=== PATIENT | female | born 1975 | race Caucasian/White ===

== ENCOUNTER 2018-02-17 14:02 | Emergency (ER) | payer OTHER ==
[2018-02-17 14:02] VITALS: BMI 29.2
[2018-02-17 14:09] VITALS: TEMP 98
[2018-02-17] MEDS ORDERED: Sodium Chloride 0.9% 1,000 ML IV ONE (14:40)
--- NOTE | 2018-02-17 14:42 | C.PDOC ---
History Of Present Illness 42 year old female presents to the ED with cc of dizziness today at work. Denies any falls, trauma or LOC. Patient reports she still feels dizzy, weak and feels like she is about to faint. Also complains of upper abdominal pain for 3 weeks. Patient states she was diagnosed with a bacteria in her stomach 9 months ago. [facility]. Denies any fever, chills, hematochezia, hematemesis, nausea, vomiting, or diarrhea. . Time Seen by Provider: 02/17/18 14:18 Chief Complaint (Nursing): Dizziness/Lightheaded History Per: Patient History/Exam Limitations: no limitations Onset/Duration Of Symptoms: Days Current Symptoms Are (Timing): Still Present Fall Associated With With Symptoms: No Past Medical History Reviewed: Historical Data, Nursing Documentation, Vital Signs Vital Signs: Last Vital Signs Temp 98.0 F 02/17/18 14:05 Pulse 104 H 02/17/18 14:05 Resp 18 02/17/18 14:05 BP 130/94 H 02/17/18 14:05 Pulse Ox 98 02/17/18 14:05 - Medical History PMH: Asthma, Gastritis, HTN Surgical History: Family History: States: No Known Family Hx - Social History Hx Tobacco Use: No Hx Alcohol Use: No Hx Substance Use: No - Immunization History Hx Tetanus Toxoid Vaccination: No Hx Influenza Vaccination: No Hx Pneumococcal Vaccination: No Review Of Systems Except As Marked, All Systems Reviewed And Found Negative. Constitutional: Negative for: Fever, Chills Gastrointestinal: Positive for: Abdominal Pain. Negative for: Nausea, Vomiting, Diarrhea, Hematochezia, Hematemesis Neurological: Positive for: Dizziness Physical Exam - Physical Exam Additional Physical Exam Comments: Gen: VS reviewed, alert, well developed, well nourished, nontoxic, mild distress Eye: EOMI, PERRL Neck: no JVD, supple, no adenopathy CV: Tachycardic, regular rhythm, no rubs,no murmur, S1, S2 Pulm: no distress, clear to auscultation, no wheeze, no rhonchi, breath sounds equal, no rales Abd: soft, mild epigastric tenderness, no guarding, no rebound, no rigidity Ext: no edema Skin: good color, no rash, no cyanosis Psych: responds appropriately to questions, normal affect Neuro: oriented x3, CN2-12 intact grossly, motor intact, sensation intact ED Course And Treatment - Laboratory Results Result Diagrams: 02/17/18 14:59 02/17/18 14:59 O2 Sat by Pulse Oximetry: 98 (RA) Pulse Ox Interpretation: Normal - CT Scan/US US gallbladder Other Rad Studies (CT/US): Read By Radiologist, Radiology Report Reviewed CT/US Interpretation: IMPRESSION: liver may be seen in setting of hepatic parenchymal disease or fatty infiltration. Medical Decision Making Medical Decision Making: patient was seen for near syncope and chronic upper abdominal pain. workup in the ED unremarkable, labs ok, patient referred back to see GI. patient states she was off omeprazole for 3 weeks for GI testing but is unsure if she is supposed to go back on it. Disposition - Disposition Disposition: HOME/ ROUTINE Disposition Time: 19:02 Condition: STABLE Additional Instructions: Call your welt butter hand to see if you should restart taking the omeprazole. Follow up with your primary care doctor further evaluation of the dizziness. MARÍA PARMAR, thank you for letting us take care of you today. Your provider was Dr. Manuel Adame and you were treated for abdominal pain. The emergency medical care you received today was directed at your acute symptoms. If you were prescribed any medication, please fill it and take as directed. It may take several days for your symptoms to resolve. Return to the Emergency Department if your symptoms worsen, do not improve, or if you have any other problems. Please contact your doctor or call one of the physicians/clinics you have been referred to that are listed on the Patient Visit Information form that is included in your discharge packet. Bring any paperwork you were given at discharge with you along with any medications you are taking to your follow up visit. Our treatment cannot replace ongoing medical care by a primary care provider outside of the emergency department. Thank you for allowing the [facility] team to be part of your care today. If you had an X-Ray or CT scan: A Radiologist will review the ED reading if any change in treatment is needed we will contact you. If you had a blood, urine, or wound culture: It will take several days for the results, if any change in treatment is needed we will contact you. If you had an STI test: It will take 48 hours for the results. Please call after 1 week if you have not heard back. Instructions: Near Fainting (DC), Stomach Ache and Stomach Upset Forms: [facility] (Danish) - Clinical Impression Clinical Impression: Near syncope, Abdominal pain - Scribe Statement The provider has reviewed the documentation as recorded by the Scribe Claudia Mendoza All medical record entries made by the Scribe were at my direction and personally dictated by me. I have reviewed the chart and agree that the record accurately reflects my personal performance of the history, physical exam, medical decision making, and the department course for this patient. I have also personally directed, reviewed, and agree with the discharge instructions and disposition.
[2018-02-17 14:55] LABS: BASO % 0.3 % (0.0-2.0); EOS % 0.5 % (0.0-4.0); HEMOGLOBIN 13.7 g/dL (11.0-16.0); LYMPH % 24.3 % (20.0-40.0); MEAN CELL VOLUME 88.8 fL (81.0-99.0); MEAN CORPUSCULAR HEMOGLOBIN 29.8 pg (27.0-31.0); MEAN CORPUSCULAR HGB CONC 33.6 g/dL (33.0-37.0); MEAN PLATELET VOLUME 8.1 fL (7.2-11.7); MONO # 0.7 K/uL (0.0-0.8); MONO % 8.8 % (0.0-10.0); NEUT # 5.5 K/uL (1.8-7.0); NEUT % 66.1 % (50.0-75.0); NRBC % 0.1 % (0.0-2.0); RBC 4.58 Mil/uL (3.80-5.20); RED CELL DISTRIBUTION WIDTH 14.6 % (11.5-14.5); WHITE BLOOD COUNT 8.4 K/uL (4.8-10.8)
[2018-02-17] MEDS ORDERED: Sodium Chloride 0.9% 1,000 ML ONE (14:57)
[2018-02-17 15:11] LABS: PROTHROMBIN TIME 11.4 SECONDS (9.7-12.2)
[2018-02-17 15:28] LABS: ALB/GLOB RATIO 1.4 (1.0-2.1); ALBUMIN 4.3 g/dL (3.5-5.0); ALT/SGPT 25 U/L (9-52); AST/SGOT 21 U/L (14-36); BLOOD UREA NITROGEN 10 mg/dL (7-17); CALCIUM 8.8 mg/dl (8.6-10.4); GFR NON-AFRICAN AMERICAN > 60; LIPASE 83 U/L (23-300)
[2018-02-17 15:33] LABS: SQUAMOUS EPITHIAL < 1 /hpf (0-5); URINE BACTERIA RARE (<OCC); URINE BILIRUBIN NEGATIVE (NEGATIVE); URINE BLOOD NEGATIVE (NEGATIVE); URINE CLARITY Clear (Clear); URINE COLOR Colorless (YELLOW); URINE GLUCOSE (UA) NORMAL (Normal); URINE LEUKOCYTE ESTERASE NEG Leu/uL (Negative); URINE PROTEIN NEGATIVE (NEGATIVE); URINE UROBILINOGEN NORMAL mg/dL (0.2-1.0)
[2018-02-17] MEDS ORDERED: Morphine 4 MG/ML VIAL ONE (15:49)
--- NOTE | 2018-02-17 15:51 | US ---
Date of service: 02/17/2018 HISTORY: RUQ pain,gallstones COMPARISON: None available. TECHNIQUE: Sonographic evaluation of the right upper quadrant of the abdomen. FINDINGS: LIVER: Measures 17.3 cm in length. Echogenic liver may be seen in setting of hepatic parenchymal disease or fatty infiltration. No focal hepatic mass identified. The main portal vein appears patent with normal directional flow. No intrahepatic bile duct dilatation. GALLBLADDER: No gallstones. No gallbladder wall thickening or pericholecystic edema. Negative sonographic Acuña's sign as assessed by the blood typer. COMMON BILE DUCT: Measures 4 mm. PANCREAS: Not well-visualized. RIGHT KIDNEY: Measures approximately 11.4 x 4.5 x 4.1 cm. No obstructing calculus or hydronephrosis identified. AORTA: Limited visualization appears grossly unremarkable. IVC: Limited visualization appears grossly unremarkable. OTHER FINDINGS: None . IMPRESSION: Echogenic liver may be seen in setting of hepatic parenchymal disease or fatty infiltration.
[2018-02-17] MEDS ORDERED: Iohexol 350mg/ml 100 ML ONE (16:18)
--- NOTE | 2018-02-17 18:10 | CT ---
Date of service: 02/17/2018 PROCEDURE: CT Abdomen and Pelvis with contrast HISTORY: upper abd pain COMPARISON: Gallbladder ultrasound performed 02/17/18 TECHNIQUE: Contrast dose: 100 mL Omnipaque 350 Radiation dose: Total exam DLP = 653.68 mGy-cm. This CT exam was performed using one or more of the following dose reduction techniques: Automated exposure control, adjustment of the mA and/or kV according to patient size, and/or use of iterative reconstruction technique. FINDINGS: LOWER THORAX: No visible consolidation, pleural effusion, or pneumothorax. LIVER: Unremarkable. GALLBLADDER AND BILE DUCTS: Unremarkable. PANCREAS: Unremarkable. SPLEEN: Unremarkable. ADRENALS: Unremarkable. KIDNEYS AND URETERS: The kidneys enhance symmetrically. No hydronephrosis or obstructing calculus identified. VASCULATURE: No aortic aneurysm. No atherosclerotic calcification or mural plaque present. BOWEL: Stomach is nondistended. Lack of oral contrast limits evaluation for bowel pathology. Bowel loops appear within normal limits of caliber without evidence of obstruction. APPENDIX: The appendix appears within normal limits of caliber. No secondary signs of acute appendicitis. PERITONEUM: No significant free fluid. No definite free air. LYMPH NODES: No bulky adenopathy identified. BLADDER: Unremarkable. REPRODUCTIVE: Unremarkable. BONES: No acute osseous abnormality is detected. OTHER FINDINGS: None. IMPRESSION: No acute pathology identified.
[2018-02-17 18:55] VITALS: BP 123/76; PULSE 89; RESP 18
[2018-02-17 19:01] VITALS: O2SAT 98
== END 2018-02-17 19:56 | disposition home or self-care (01) ==
LOC: C.ER 14:02
DX: R55 Syncope and collapse (principal); R10.9 Unspecified abdominal pain; I10 Essential (primary) hypertension
CPT/HCPCS: 74177; 76705; 80053; 81001; 83690; 84484; 85025; 85610; 85730; 96361; 96374; 96375; 99285; J1885; J2270; J7030; Q9967